=== PATIENT | male | born 1980 | race Two or more races ===

== ENCOUNTER 2017-04-10 09:54 | Emergency (ER) | payer SELFPAY ==
[2017-04-10 10:08] VITALS: BP 168/107
[2017-04-10] MEDS ORDERED: oxyCOD/ACETAMIN 5 MG/325 MG TABLET PO STA (11:42)
[2017-04-10] MEDS ORDERED: IBUPROFEN 400 MG TABLET PO STA (11:42)
[2017-04-10] MEDS ORDERED: AMOXICILLIN 250 MG CAPSULE PO STA (11:43)
--- NOTE | 2017-04-10 11:49 | ED Physician Documentation ---
History of Present Illness - Stated complaint Stated Complaint: TOOTH PX - Chief complaint Chief Complaint: Heent - Additonal information Additional information: hx from pt 36 m broken and now painful R upper molar Review of Systems Constitutional: denies: Fever Throat: reports: Dental pain / toothache PD PAST MEDICAL HISTORY - Present Medications Home Medications: Ambulatory Orders Medication Instructions Recorded Confirmed Amoxicillin 500 mg PO Q8H #20 capsule 04/10/17 Ibuprofen [Motrin] 400 mg PO Q6H PRN #30 tablet 04/10/17 Oxycodone HCl/Acetaminophen 1 each PO Q6HR PRN #10 tablet 04/10/17 [Percocet 5-325 mg Tablet] - Allergies Allergies/Adverse Reactions: Allergies Allergy/AdvReac Type Severity Reaction Status Date / Time No Known Drug Allergies Allergy Verified 04/10/17 10:08 PD ED PE NORMAL - Vitals Vital signs reviewed: Yes - HEENT HEENT: Other (R upper molar broken and tender with swollen red gum, no bleeding does not seem to be a fresh broken tooth) - Cardiac Cardiac: RRR - Respiratory Respiratory: No respiratory distress, Clear bilaterally Results - Vitals Vitals: Vital Signs - 24 hr 04/10/17 10:05 Temperature 37 C Heart Rate 71 Respiratory 14 Rate Blood Pressure 168/107 H O2 Saturation 100 Oxygen O2 Source Room air Departure - Departure Disposition: 01 Home, Self Care Clinical Impression: Pain, dental Condition: Good Instructions: ED Tooth Pain Prescriptions: Oxycodone HCl/Acetaminophen [Percocet 5-325 mg Tablet] 1 each PO Q6HR PRN #10 tablet PRN Reason: Severe Pain Amoxicillin 500 mg PO Q8H #20 capsule Ibuprofen [Motrin] 400 mg PO Q6H PRN #30 tablet PRN Reason: Pain Print Language: Serbian Comments: Please follow up with your dentist tomorrow as scheduled Your blood pressure was high today - please follow up with your PMD
[2017-04-10] MEDS ORDERED: oxyCOD/ACETAMIN 5 MG/325 MG TABLET PO ONE (11:51)
[2017-04-10] MEDS ORDERED: IBUPROFEN 400 MG TABLET PO ONE (11:51)
[2017-04-10] MEDS ORDERED: AMOXICILLIN 250 MG CAPSULE PO ONE (11:51)
== END 2017-04-10 12:02 | disposition home or self-care (01) ==
LOC: ED 09:54
DX: K08.89 Other specified disorders of teeth and supporting structures (principal)
CPT/HCPCS: 99283; A9270